=== PATIENT | female | born 1965 | race Caucasian/White ===

== ENCOUNTER → 2017-08-29 | Outpatient (CLI) | payer BC ==
--- NOTE | 2017-09-19 10:56 | EM ---
EVENT MONITOR 40 DAY EVENT MONITOR: A 40 day event monitor for palpitations. Event monitor shows sinus mechanism with frequent PVCs, at least 2 different morphologies, nonsustained ventricular tachycardia, 15-beat run of accelerated idioventricular rhythm/nonsustained VT. Note for one episode of sinus tachycardia. High PVC burden. MMMAYANKL / IJN: [id number] /
== END | disposition home or self-care (01) ==
LOC: RADECHMAIN 12:11
PROVIDERS: ATTEND Internal Medicine
DX: I49.3 Ventricular premature depolarization (principal)
CPT/HCPCS: 93270; 93271

== ENCOUNTER 2019-05-12 08:22 | Day surgery (SDC) | payer BC ==
[~2019-05-12 08:22] MED LIST: LACTATED RINGERS 1,000 ML IV SCH
[2019-05-12 08:52] VITALS: TEMP 97
[2019-05-12] MEDS ORDERED: LIDOCAINE 1% 20 ML VIAL (10MG/ML) FOR IV START INTRADERMA ONE (08:54)
[2019-05-12 08:55] LABS: Glucose,Whole Blood 88 mg/dL (75-99)
[2019-05-12] MEDS ORDERED: PROPOFOL 10 MG/ML 20 ML VIAL IV ONE (09:17)
--- NOTE | 2019-05-12 09:30 | P.PCN ---
Date of Procedure: 05/12/19 Procedure(s) Performed: BRIEF HISTORY: Patient is a 53-year-old pleasant white female scheduled for an elective colonoscopy as a part of screening for colorectal neoplasia. PROCEDURE PERFORMED: Colonoscopy. PREOPERATIVE DIAGNOSIS: Screening for colon cancer. IV sedation per Anesthesia. PROCEDURE: After informed consent was obtained, the patient, was brought into the endoscopy unit. IV sedation was administered by Anesthesia under continuous monitoring. Digital rectal examination was normal. Initially the Olympus CF-160 flexible video colonoscope was then inserted in the rectum, gradually advanced into the cecum without any difficulty. Careful examination was performed as the scope was gradually being withdrawn. Ileocecal valve and the appendiceal orifice were visualized and appeared normal. Prep was excellent. Mucosa of the cecum, ascending colon, transverse colon, descending colon, sigmoid colon, and rectum appeared normal. Retroflexion was performed in the rectum and no lesions were seen. The patient tolerated the procedure well. IMPRESSION: Normal-appearing colon from rectum to cecum with no evidence of colorectal neoplasia. RECOMMENDATIONS: Findings of this examination were discussed with the patient as well as her family. She was advised to have a repeat surveillance colonoscopy in 10 years.
[2019-05-12 10:21] VITALS: BP 100/62; PULSE 80; RESP 18
== END 2019-05-12 10:31 | disposition home or self-care (01) ==
LOC: ORWHC2ENDO 08:22
PROVIDERS: ATTEND Internal Medicine Gastroenterology
DX: Z12.11 Encounter for screening for malignant neoplasm of colon (principal); J45.909 Unspecified asthma, uncomplicated; Z88.0 Allergy status to penicillin; Z98.890 Other specified postprocedural states; Z90.49 Acquired absence of other specified parts of digestive tract
CPT/HCPCS: 81025; 45378; J2704

== ENCOUNTER 2019-06-05 02:00 | Emergency (ER) | payer BC ==
[2019-06-05 02:09] VITALS: RESP 18; TEMP 97.8
--- NOTE | 2019-06-05 02:14 | ED ---
Arrhythmia/Palpitations HPI - General Chief Complaint: Arrhythmia/Palpitations Stated Complaint: Chest Pain Hx Cardiac Issues Time Seen by Provider: 06/05/19 02:10 Source: patient Mode of arrival: wheelchair Limitations: no limitations - History of Present Illness MD Complaint: rapid heart beat Onset/Timin -: hour(s) Context: occurred during rest Associated Symptoms: shortness of breath, anxiety Treatments Prior to Arrival: vagal maneuvers - Related Data Previous Rx's Medication Instructions Recorded Sulfamethox-Tmp 800-160Mg [Bactrim 1 each PO Q12HR #6 tab 06/05/19 Ds] Allergies Allergy/AdvReac Type Severity Reaction Status Date / Time Penicillins Allergy Unknown Verified 06/05/19 02:09 Review of Systems ROS Statement: Those systems with pertinent positive or pertinent negative responses have been documented in the HPI. ROS Other: All systems not noted in ROS Statement are negative. Constitutional: Denies: fever, chills Respiratory: Reports: dyspnea. Denies: cough, wheezes Cardiovascular: Reports: palpitations. Denies: edema, syncope Gastrointestinal: Denies: abdominal pain, nausea, vomiting Genitourinary: Denies: dysuria Musculoskeletal: Denies: back pain Skin: Denies: rash Neurological: Denies: headache Psychiatric: Reports: anxiety Past Medical History Past Medical History: No Reported History Additional Past Medical History / Comment(s): rSCREENING COLONOSCOPY, irregular heart beat. History of Any Multi-Drug Resistant Organisms: None Reported Past Surgical History: Tonsillectomy Past Anesthesia/Blood Transfusion Reactions: No Reported Reaction Past Psychological History: No Psychological Hx Reported Smoking Status: Never smoker Past Alcohol Use History: None Reported Past Drug Use History: None Reported General Exam Limitations: no limitations General appearance: alert, in no apparent distress Head exam: Present: atraumatic, normocephalic Eye exam: Present: normal appearance. Absent: scleral icterus, conjunctival injection ENT exam: Present: normal oropharynx Neck exam: Present: normal inspection Respiratory exam: Present: normal lung sounds bilaterally. Absent: respiratory distress, wheezes, rales, rhonchi, stridor Cardiovascular Exam: Present: regular rate, normal rhythm, normal heart sounds. Absent: systolic murmur, diastolic murmur, rubs, gallop GI/Abdominal exam: Present: soft. Absent: distended, tenderness, guarding, rebound, rigid, mass Extremities exam: Present: normal inspection, normal capillary refill. Absent: pedal edema, calf tenderness Back exam: Present: normal inspection. Absent: CVA tenderness (R), CVA tenderness (L) Neurological exam: Present: alert Skin exam: Present: warm, dry, intact, normal color. Absent: rash Course Vital Signs 06/05/19 02:03 Temperature 97.8 F Respiratory 18 Rate EKG Findings - EKG Results: EKG: interpreted by DAVID, sinus rhythm (with sinus arrhythmia, rate 79 bpm), normal axis, normal QRS, normal ST/T, no acute changes Medical Decision Making - Lab Data Result diagrams: 06/05/19 02:12 06/05/19 02:12 Lab Results 06/05/19 06/05/19 06/05/19 Range/Units 02:12 02:12 02:12 WBC 5.8 (3.8-10.6) k/uL RBC 4.18 (3.80-5.40) m/uL Hgb 13.4 (11.4-16.0) gm/dL Hct 38.8 (34.0-46.0) % MCV 92.6 (80.0-100.0) fL MCH 32.0 (25.0-35.0) pg MCHC 34.6 (31.0-37.0) g/dL RDW 13.0 (11.5-15.5) % Plt Count 259 (150-450) k/uL Neutrophils % 54 % Lymphocytes % 33 % Monocytes % 5 % Eosinophils % 4 % Basophils % 0 % Neutrophils # 3.2 (1.3-7.7) k/uL Lymphocytes # 1.9 (1.0-4.8) k/uL Monocytes # 0.3 (0-1.0) k/uL Eosinophils # 0.2 (0-0.7) k/uL Basophils # 0.0 (0-0.2) k/uL PT 10.3 (9.0-12.0) sec INR 1.0 (<1.2) APTT 22.6 (22.0-30.0) sec D-Dimer 0.28 (<0.60) mg/L FEU Sodium 140 (137-145) mmol/L Potassium 4.1 (3.5-5.1) mmol/L Chloride 106 (98-107) mmol/L Carbon Dioxide 25 (22-30) mmol/L Anion Gap 9 mmol/L BUN 20 H (7-17) mg/dL Creatinine 0.83 (0.52-1.04) mg/dL Est GFR (CKD-EPI)AfAm >90 (>60 ml/min/1.73 sqM) Est GFR (CKD-EPI)NonAf 82 (>60 ml/min/1.73 sqM) Glucose 87 (74-99) mg/dL Calcium 9.6 (8.4-10.2) mg/dL Magnesium 1.8 (1.6-2.3) mg/dL Total Bilirubin 0.6 (0.2-1.3) mg/dL AST 32 (14-36) U/L ALT 21 (4-34) U/L Alkaline Phosphatase 52 (38-126) U/L Troponin I (0.000-0.034) ng/mL Total Protein 7.0 (6.3-8.2) g/dL Albumin 4.7 (3.5-5.0) g/dL TSH 1.610 (0.465-4.680) mIU/L Urine Color Urine Appearance (Clear) Urine pH (5.0-8.0) Ur Specific Morris (1.001-1.035) Urine Protein (Negative) Urine Glucose (UA) (Negative) Urine Ketones (Negative) Urine Blood (Negative) Urine Nitrite (Negative) Urine Bilirubin (Negative) Urine Urobilinogen (<2.0) mg/dL Ur Leukocyte Esterase (Negative) Urine RBC (0-5) /hpf Urine WBC (0-5) /hpf Ur Squamous Epith Cells (0-4) /hpf 06/05/19 06/05/19 06/05/19 Range/Units 02:12 03:49 05:02 WBC (3.8-10.6) k/uL RBC (3.80-5.40) m/uL Hgb (11.4-16.0) gm/dL Hct (34.0-46.0) % MCV (80.0-100.0) fL MCH (25.0-35.0) pg MCHC (31.0-37.0) g/dL RDW (11.5-15.5) % Plt Count (150-450) k/uL Neutrophils % % Lymphocytes % % Monocytes % % Eosinophils % % Basophils % % Neutrophils # (1.3-7.7) k/uL Lymphocytes # (1.0-4.8) k/uL Monocytes # (0-1.0) k/uL Eosinophils # (0-0.7) k/uL Basophils # (0-0.2) k/uL PT (9.0-12.0) sec INR (<1.2) APTT (22.0-30.0) sec D-Dimer (<0.60) mg/L FEU Sodium (137-145) mmol/L Potassium (3.5-5.1) mmol/L Chloride (98-107) mmol/L Carbon Dioxide (22-30) mmol/L Anion Gap mmol/L BUN (7-17) mg/dL Creatinine (0.52-1.04) mg/dL Est GFR (CKD-EPI)AfAm (>60 ml/min/1.73 sqM) Est GFR (CKD-EPI)NonAf (>60 ml/min/1.73 sqM) Glucose (74-99) mg/dL Calcium (8.4-10.2) mg/dL Magnesium (1.6-2.3) mg/dL Total Bilirubin (0.2-1.3) mg/dL AST (14-36) U/L ALT (4-34) U/L Alkaline Phosphatase (38-126) U/L Troponin I <0.012 <0.012 (0.000-0.034) ng/mL Total Protein (6.3-8.2) g/dL Albumin (3.5-5.0) g/dL TSH (0.465-4.680) mIU/L Urine Color Light Yellow Urine Appearance Clear (Clear) Urine pH 5.5 (5.0-8.0) Ur Specific Morris 1.016 (1.001-1.035) Urine Protein Negative (Negative) Urine Glucose (UA) Negative (Negative) Urine Ketones 1+ H (Negative) Urine Blood Small H (Negative) Urine Nitrite Negative (Negative) Urine Bilirubin Negative (Negative) Urine Urobilinogen <2.0 (<2.0) mg/dL Ur Leukocyte Esterase Large H (Negative) Urine RBC 5 (0-5) /hpf Urine WBC 48 H (0-5) /hpf Ur Squamous Epith Cells <1 (0-4) /hpf Disposition Clinical Impression: Palpitations, Urinary tract infection Disposition: HOME SELF-CARE Condition: Good Instructions (If sedation given, give patient instructions): Heart Palpitations (ED), Urinary Tract Infection in Women (ED) Prescriptions: Sulfamethox-Tmp 800-160Mg [Bactrim Ds] 1 each PO Q12HR #6 tab Is patient prescribed a controlled substance at d/c from ED?: No Referrals: Grover Linder MD [Primary Care Provider] - 1-2 days
[2019-06-05] MEDS ORDERED: ASPIRIN 81 MG PO STA (02:21)
[2019-06-05] MEDS ORDERED: SODIUM CHLORIDE 0.9% 500 ML 500 ML IV STA (02:21)
[2019-06-05 02:38] LABS: Basophils % (A) 0 %; Eosinophils # (A) 0.2 k/uL (0-0.7); Eosinophils % (A) 4 %; HCT 38.8 % (34.0-46.0); HGB 13.4 gm/dL (11.4-16.0); Lymphocytes # (A) 1.9 k/uL (1.0-4.8); Lymphocytes % (A) 33 %; MCHC 34.6 g/dL (31.0-37.0); MCV 92.6 fL (80.0-100.0); Mean Platelet Volume 6.9; Monocytes # (A) 0.3 k/uL (0-1.0); Monocytes % (A) 5 %; Neutrophils # (A) 3.2 k/uL (1.3-7.7); Neutrophils % (A) 54 %; Platelet Count 259 k/uL (150-450); RBC 4.18 m/uL (3.80-5.40); WBC 5.8 k/uL (3.8-10.6)
[2019-06-05 02:50] LABS: ALT 21 U/L (4-34); AST 32 U/L (14-36); African American GFR (CKD) >90 (>60 ml/min/1.73 sqM); Albumin 4.7 g/dL (3.5-5.0); Alkaline Phosphatase 52 U/L (38-126); Anion Gap 9 mmol/L; Blood Urea Nitrogen 20 mg/dL (7-17); Calcium 9.6 mg/dL (8.4-10.2); Carbon Dioxide 25 mmol/L (22-30); Chloride 106 mmol/L (98-107); Glucose 87 mg/dL (74-99); Magnesium 1.8 mg/dL (1.6-2.3); Non-African American GFR(CKD) 82 (>60 ml/min/1.73 sqM); Potassium 4.1 mmol/L (3.5-5.1); Sodium 140 mmol/L (137-145); Total Bilirubin 0.6 mg/dL (0.2-1.3)
[2019-06-05 02:56] LABS: D-Dimer 0.28 mg/L FEU (<0.60); Partial Thromboplastin Time 22.6 sec (22.0-30.0); Prothrombin Time 10.3 sec (9.0-12.0)
--- NOTE | 2019-06-05 03:09 | XR ---
EXAMINATION TYPE: XR chest 2V DATE OF EXAM: 06/05/2019 COMPARISON: NONE HISTORY: Dysrhythmia TECHNIQUE: 2 views FINDINGS: Heart and mediastinum are normal. Lungs are clear. Diaphragm is normal. Bony thorax is norm al. There are chest leads. IMPRESSION: Normal chest.
[2019-06-05 04:12] LABS: Appearance,Urine Clear (Clear); Bilirubin,Urine Negative (Negative); Blood,Urine Small (Negative); Color,Urine Light Yellow; Glucose,Urine (UA) Negative (Negative); Ketones,Urine 1+ (Negative); Leukocyte Esterase,Urine Large (Negative); Nitrite,Urine Negative (Negative); PH, Urine 5.5 (5.0-8.0); Protein,Urine Negative (Negative); RBC,Urine 5 /hpf (0-5); Specific Gravity,Urine 1.016 (1.001-1.035); Squamous Epithelial Cell,Urine <1 /hpf (0-4); Urobilinogen,Urine <2.0 mg/dL (<2.0); WBC,Urine 48 /hpf (0-5)
[2019-06-05] MEDS ORDERED: SULFAMETHOX-TMP 800-160MG 1 EACH TAB PO STA (05:43)
[2019-06-05 06:00] VITALS: BP 102/57; PULSE 87
== END 2019-06-05 06:05 | disposition home or self-care (01) ==
LOC: EC 02:00
DX: N39.0 Urinary tract infection, site not specified (principal); R00.2 Palpitations; R06.02 Shortness of breath; F41.9 Anxiety disorder, unspecified; Z88.0 Allergy status to penicillin
CPT/HCPCS: 36415; 71046; 80053; 81001; 83735; 84443; 84484; 85025; 85379; 85610; 85730; 93005; 99285

== ENCOUNTER → 2019-08-02 | Outpatient (CLI) | payer BC ==
--- NOTE | 2019-08-09 13:51 | MM ---
Reason for exam: screening (asymptomatic). Last mammogram was performed 10 years and 11 months ago. History: Patient is postmenopausal. Physical Findings: A clinical breast exam by your physician is recommended on an annual basis and results should be correlated with mammographic findings. MG 3D Screening Mammo W/Cad Bilateral CC and MLO view(s) were taken. Prior study comparison: September 08, 2008, mammogram, performed at [facility]. The breast tissue is heterogeneously dense. This may lower the sensitivity of mammography. No suspicious abnormality. No significant changes when compared with prior studies. ASSESSMENT: Negative, BI-RAD 1 RECOMMENDATION: Routine screening mammogram of both breasts in 1 year.
== END | disposition home or self-care (01) ==
LOC: RADMAMWWP 09:54
PROVIDERS: ATTEND Internal Medicine
DX: Z12.31 Encounter for screening mammogram for malignant neoplasm of breast (principal)
CPT/HCPCS: 77063; 77067

== ENCOUNTER 2019-08-15 13:27 | Emergency (ER) | payer OTHER, BC ==
[2019-08-15 13:35] VITALS: RESP 16
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
[2019-08-15 15:07] VITALS: BP 124/74; PULSE 78; TEMP 97
== END 2019-08-15 15:06 | disposition home or self-care (01) ==
LOC: EC 13:27
DX: M25.511 Pain in right shoulder (principal); M25.551 Pain in right hip; Z88.0 Allergy status to penicillin; V59.50XA Passenger in pick-up truck or van injured in collision with unspecified motor vehicles in traffic accident, initial encounter; Y92.410 Unspecified street and highway as the place of occurrence of the external cause
CPT/HCPCS: 73502; 99284

== ENCOUNTER → 2020-10-30 | Outpatient (CLI) | payer BC ==
--- NOTE | 2020-10-31 07:20 | US ---
EXAMINATION TYPE: US kidneys/renal and bladder DATE OF EXAM: 10/30/2020 COMPARISON: NONE CLINICAL HISTORY: R31.9 HEMATURIA. Hematuria EXAM MEASUREMENTS: Right Kidney: 8.6 x 3.6 x 3.7 cm Left Kidney: 9.2x 4.5 x 4.1 cm Right Kidney: No hydronephrosis or masses seen Left Kidney: No hydronephrosis or masses seen Bladder: wnl Bilateral Jets seen: Yes There is no evidence for hydronephrosis at this point in time. No nephrolithiasis is seen. No claudine s are identified. The urinary bladder is anechoic. Bilateral ureteral jets are seen. Small bilateral kidneys.. IMPRESSION: Small bilateral kidneys. No hydronephrosis or renal calculi.
== END | disposition home or self-care (01) ==
LOC: RADUSWWP 16:29
PROVIDERS: ATTEND Internal Medicine
DX: N27.1 Small kidney, bilateral (principal)
CPT/HCPCS: 76770

== ENCOUNTER → 2021-03-15 | Outpatient (CLI) | payer BC ==
--- NOTE | 2021-03-15 16:16 | XR ---
EXAMINATION TYPE: XR chest 2V DATE OF EXAM: 03/15/2021 COMPARISON: 06/05/2019 HISTORY: 55-year-old female shortness of breath TECHNIQUE: Frontal and lateral views FINDINGS: The cardiomediastinal silhouette, aorta, and pulmonary vasculature are within normal limits. Mild hyp erinflation with increased retrosternal clear space. Lungs and pleural spaces are clear. IMPRESSION: Hyperinflation may relate to depth of inspiration or underlying emphysema. Clinically correlate. Othe rwise, no acute cardiopulmonary process.
== END | disposition home or self-care (01) ==
LOC: LABWHC1 11:42
PROVIDERS: ATTEND Internal Medicine
DX: R91.8 Other nonspecific abnormal finding of lung field (principal)
CPT/HCPCS: 71046

== ENCOUNTER → 2021-03-20 | Outpatient (CLI) | payer BC ==
[2021-03-20 23:46] LABS: HCT 39.6 % (37.2-46.3); HGB 13.6 g/dL (12.0-15.0); MCH 31.9 pg (27.0-32.0); MCHC 34.3 g/dL (32.0-37.0); MCV 92.7 fL (80.0-97.0); Mean Platelet Volume 9.2 fL (9.5-12.2); Platelet Count 240 X 10*3/uL (140-440); RBC 4.27 X 10*6/uL (4.10-5.20); RDW 12.7 % (11.5-14.5); WBC 5.66 X 10*3/uL (4.50-10.00)
[2021-03-21 15:41] LABS: African American GFR (CKD) 93.6 (60.0-200.0); Albumin 4.8 g/dL (3.8-4.9); Albumin/Globulin Ratio 2.48 (1.60-3.17); Anion Gap 17.5 mmol/L (4.00-12.00); BUN/Creat Ratio 12.88 Ratio (12.00-20.00); Blood Urea Nitrogen 10.6 mg/dL (9.0-27.0); Calcium 9.9 mg/dL (8.7-10.3); Carbon Dioxide 21.4 mmol/L (21.6-31.8); Globulin 1.9 g/dL (1.6-3.3); Non-African American GFR(CKD) 80.8 (60.0-200.0); Potassium 4.3 mmol/L (3.5-5.5); Total Bilirubin 0.3 mg/dL (0.30-1.20); Total Protein 6.7 g/dL (6.2-8.2)
== END | disposition home or self-care (01) ==
LOC: LABWHC1 15:52
PROVIDERS: ATTEND Internal Medicine
DX: R19.7 Diarrhea, unspecified (principal)
CPT/HCPCS: 36415; 80053; 84443; 85027

== ENCOUNTER → 2021-04-20 | Outpatient (CLI) | payer BC ==
--- NOTE | 2021-04-20 11:06 | CT ---
EXAMINATION TYPE: CT angio chest DATE OF EXAM: 04/20/2021 10:40 AM COMPARISON: HISTORY: dyspnea CT DLP: 118.9 mGycm Automated exposure control for dose reduction was used. CONTRAST: CTA scan of the thorax is performed with IV Contrast, patient injected with 100 mL of Isovue 370, pul monary embolism protocol. . FINDINGS: LUNGS: The lungs are grossly clear, there is no concerning parenchymal mass or nodule identified. T here is no pleural effusion or pneumothorax seen. The tracheobronchial tree is patent. Mild central bronchiectasis. 3 mm subpleural nodule left upper lobe. MEDIASTINUM: There is satisfactory enhancement of the pulmonary artery and its branches, there is no CT evidence for pulmonary embolism. There are no greater than 1 cm hilar or mediastinal lymph nodes. 90 pericardial effusion is seen. OTHER: Hypertrophic and degenerative change of the spine. Small hiatal hernia. IMPRESSION: 1. No diagnostic evidence of pulmonary embolism. 2. Mild central bronchiectasis
== END | disposition home or self-care (01) ==
LOC: RADCTMAIN 10:06
PROVIDERS: ATTEND Internal Medicine
DX: J47.9 Bronchiectasis, uncomplicated (principal)
CPT/HCPCS: 71275; Q9967

== ENCOUNTER → 2021-04-23 | Outpatient (CLI) | payer BC ==
--- NOTE | 2021-04-24 11:48 | ECHOF ---
Referral Reason:R06.02 Shortness of breath MEASUREMENTS -------- HEIGHT: 157.5 cm WEIGHT: 55.3 kg BP: RVIDd: 2.2 cm (< 3.3) IVSd: 0.7 cm (0.6 - 1.1) LVIDd: 4.3 cm (3.9 - 5.3) LVPWd: 0.9 cm (0.6 - 1.1) IVSs: 1.0 cm LVIDs: 2.3 cm LVPWs: 1.1 cm LAESV Index (A-L): 15.85 ml/m Ao Diam: 2.6 cm (2.0 - 3.7) AV Cusp: 1.7 cm (1.5 - 2.6) LA Diam: 2.3 cm (2.7 - 3.8) MV EXCURSION: 13.818 mm (> 18.000) MV EF SLOPE: 122 mm/s (70 - 150) EPSS: 0.5 cm MV E Levar: 0.65 m/s MV DecT: 210 ms MV A Levar: 0.43 m/s MV E/A Ratio: 1.53 RAP: 5.00 mmHg RVSP: 24.73 mmHg FINDINGS -------- Sinus rhythm. This was a technically adequate study. The left ventricular size is normal. Left ventricular wall thickness is normal. Overall left vent ricular systolic function is normal with, an EF between 55 - 60 %. The diastolic filling pattern is normal for the age of the patient 5.84. The right ventricle is normal in size. Normal LA size by volume 22+/-6 ml/m2. The right atrial size is normal. The aortic valve is trileaflet, and appears structurally normal. No aortic stenosis or regurgitation. The mitral valve is normal. Mild mitral regurgitation is present. The tricuspid valve appears structurally normal. Mild tricuspid regurgitation present. Right vent ricular systolic pressure is normal at < 35 mmHg. There is no pulmonic regurgitation present. The aortic root size is normal. Normal inferior vena cava with normal inspiratory collapse consistent with estimated right atrial pre ssure of 5 mmHg. There is no pericardial effusion. CONCLUSIONS -------- 1. Left ventricular wall thickness is normal. 2. Overall left ventricular systolic function is normal with, an EF between 55 - 60 %. 3. Normal LA size by volume 22+/-6 ml/m2. 4. The aortic valve is trileaflet, and appears structurally normal. No aortic stenosis or regurgitati on. 5. Mild mitral regurgitation is present. 6. Mild tricuspid regurgitation present. 7. There is no pericardial effusion. CASE FITTER: Loan Carson RDCS
== END | disposition home or self-care (01) ==
LOC: RADECHMAIN 14:44
PROVIDERS: ATTEND Internal Medicine
DX: I08.1 Rheumatic disorders of both mitral and tricuspid valves (principal)
CPT/HCPCS: 93306

== ENCOUNTER → 2021-05-03 | Outpatient (CLI) | payer BC ==
--- NOTE | 2021-05-14 08:53 | HM ---
48 Hour Holter monitor note: Patient wore a Holter monitor for 48 hrs from 05/03/2021 until 05/05/2021. Findings: Patient's baseline heart rate was sinus rhythm. There were no signficant atrial fibrillation, atrial flutter, or ventricular tachycardia episodes. There were no significant pauses greater than 2 seconds. Patient's minimum heart rate was 49. Patient's maximum heart rate was 121. Patient's average heart rate was 71. There were a total of 1942 PVCs representing less than 1% of PVC burden as well as one couplet. There were a total of 10 SVT events with the longest lasting for 8 minutes with a heart rate of approximately 185 bpm. 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 Patient had a total of 9 patient activated events. Episodes of "dizziness" corresponded with normal sinus rhythm as well as occasional PVC. Patient did have 1 episode of "rapid/fast heartbeat" which corresponded with a brief run of SVT. Conclusions: Normal sinus rhythm Less than 1% PVC burden 10 episodes of SVT, longest being 8 minutes. 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 Patient activated events of dizziness corresponded with normal sinus rhythm and occasional PVC. Other patient activated event of "rapid/fast heartbeat" corresponded with SVT. No atrial fibrillation, ventricular tachycardia or pauses greater than 2 seconds. MTDD
== END | disposition home or self-care (01) ==
LOC: RADECHMAIN 12:08
PROVIDERS: ATTEND Internal Medicine
DX: R00.2 Palpitations (principal)
CPT/HCPCS: 93225; 93226

== ENCOUNTER → 2023-10-13 | Outpatient (CLI) | payer BC ==
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
== END | disposition home or self-care (01) ==
LOC: RADXRMAIN 15:35
PROVIDERS: ATTEND Internal Medicine
DX: M17.12 Unilateral primary osteoarthritis, left knee (principal); M25.462 Effusion, left knee

== ENCOUNTER → 2023-10-17 | Outpatient (CLI) | payer BC ==
--- NOTE | 2023-10-17 18:30 | XR ---
EXAMINATION TYPE: XR tibia fibula LT DATE OF EXAM: 10/17/2023 COMPARISON: None HISTORY: Contusion, kicked by cow TECHNIQUE: 2 view left tibia and fibula FINDINGS: Plantar calcaneal heel spur is present No acute fracture or dislocation is evident. The soft tissues appear normal. Joint spaces appear pres erved. Follow-up exams can be performed 7-10 days of acute trauma for continued pain. IMPRESSION: 1. No acute osseous abnormality left tibia and fibula.
== END | disposition home or self-care (01) ==
LOC: RADXRMAIN 16:46
PROVIDERS: ATTEND Internal Medicine
DX: S80.12XA Contusion of left lower leg, initial encounter (principal)